=== PATIENT | male | born 1965 | race Caucasian/White ===

== ENCOUNTER 2024-01-20 09:40 | Day surgery (SDC) | payer BC, OTHER ==
[~2024-01-20] VITALS: Ht 183 cm; Wt 98.0 kg
[2024-01-20] VITALS (16 sets, daily range): BP systolic 106–139; BP diastolic 73–92
[~2024-01-20 09:40] MED LIST: ABILIFY MYCITE2 M2 PO; BUPROPION HCL200 M2 PO; ESCI20 PO; HYDROCODONE-AC1 EAC8 PO
[2024-01-20] MEDS ORDERED: OxyCODONE HCL 10 MG TABCR PO SCH (10:00)
[2024-01-20] MEDS ORDERED: Ropivacaine 0.5% HCl/Pf 123.125 MG,EPINEPHrine HCL 0.25 MG,Ketorolac Tromethamine 15 MG... INFIL SCH (10:00)
[2024-01-20] MEDS ORDERED: CeFAZolin Sodium 2,000 MG in NS 100 ML IV SCH ×2 (10:00→21:00)
[2024-01-20] MEDS ORDERED: Acetaminophen 500 MG Tab PO SCH ×2 (10:00→16:00)
[2024-01-20] MEDS ORDERED: Lactated Ringer's 1,000 ML IV SCH ×2 (10:00→10:50)
[2024-01-20] MEDS ORDERED: Chlorhexidine Mouth Care 15 ML UDC MT SCH (10:00)
[2024-01-20] MEDS ORDERED: Tranexamic Acid 100 ML IV SCH (10:00)
[2024-01-20] MEDS ORDERED: Promethazine HCl 25 MG Tab PO PRN (10:40)
[2024-01-20] MEDS ORDERED: Prochlorperazine Edisylate 10 mg Vial IV PRN (10:40)
[2024-01-20] MEDS ORDERED: Magnesium Hydroxide Conc 10 ML UDC PO PRN (10:45)
[2024-01-20] MEDS ORDERED: Bisacodyl 10 MG Supp PR PRN (10:45)
[2024-01-20] MEDS ORDERED: Metoclopramide HCl 5MG / ML 2ML Vial IV PRN (10:45)
[2024-01-20] MEDS ORDERED: OxyCODONE HCL 5 MG TAB PO PRN ×2 (10:45)
[2024-01-20] MEDS ORDERED: Ondansetron HCl 2 MG / ML 2ML Vial IV PRN (10:45)
[2024-01-20] MEDS ORDERED: DiphenhydrAMINE HCL 25 MG Cap PO PRN (10:50)
[2024-01-20] MEDS ORDERED: HYDROmorphone HCl/Pf 1MG SYR IV PRN (10:50)
[2024-01-20] MEDS ORDERED: ERGO50000 PO (11:13)
[2024-01-20] MEDS ORDERED: PREVIDENT 500051 GM DT (11:13)
[2024-01-20] MEDS ORDERED: PERIDEX15 ML UD (11:15)
[2024-01-20] MEDS ORDERED: Ketorolac Tromethamine 15mg Vial IV SCH (11:25)
[2024-01-20] MEDS ORDERED: propofoL 20 ML IV ONE ×2 (12:42→13:17)
[2024-01-20] MEDS ORDERED: ePHEDrine Sulfate 50 MG/ML 1ML Injection ONE (13:06)
[2024-01-20] MEDS ORDERED: FentaNYL Citrate 50 MCG/ML 2 ML Injection ONE (13:31)
--- NOTE | 2024-01-20 13:43 | NUR ---
01/20/24 1343 Kellee Schultz PATIENT ENTERED OR AT 1246.ANESTHESIOLOGIST PERFORMED SPINAL. ON INCISION AT 1326, PATIENT WAS STILL HAVING FEELING SENSATION. AT THIS TIME,ANESTHESIOLOGIST CONVERTED TO GENERAL.
[2024-01-20] MEDS ORDERED: Glycopyrrolate 0.2 MG/ML 5ML VIAL ONE (13:45)
[2024-01-20] MEDS ORDERED: Phenylephrine HCl 100 MCG/ML-NS 10MLSYR (1MG/10ML) ONE (14:01)
[2024-01-20] MEDS ORDERED: Dexamethasone Sod Phos 10 MG/ML 1ML VIAL ONE (14:30)
[2024-01-20] MEDS ORDERED: Ondansetron HCl 2 MG / ML 2ML Vial ONE (14:30)
--- NOTE | 2024-01-20 17:45 | NUR ---
SHIFT SUMMARY PT A&OX4, VSS/RA, CASSIE PO, VOIDING, AMB 1 PP MIN ASSIST WITH FWW/GB, PAIN MANAGED. DAV HENDRICKS BEDSIDE. PT IS INSISTING ON GOING HOME EVEN THOUGH LEFT KNEE JAGJIT OCC WITH AMB AND PT WAS UNABLE TO WORK WITH PHYSICAL THERAPY DUE TO TIME OF COMPLETION OF SURGERY AND ARRIVING TO THE FLOOR AND ANESTHESIA WEARING OFF; PT IS STAYING AN ADDITIONAL HOUR TO HAVE DINNER AND THEN WILL WALK WITH ASSISTANCE AGAIN PRIOR TO DECIDING ON DC; I AM ENCOURAGING PT TO STAY THE NIGHT BUT HE SAYS HE IS NOT GOING TO STAY.
--- NOTE | 2024-01-20 19:11 | NUR ---
SHIFT SUMMARY PT AMB HALLWAY AGAIN WITH FWW/GB, KNEE BUCKLED 5X. I TOLD PATIENT I WOULD NOT DC HIM AT THIS TIME. HE DENIES PAIN, HE AMBS WNL JUST OCC LLE SEEMS TO GIVE W/O NOTICE. HIS GF WANTS HIM TO STAY. PLAN IS TO STAY AND WAIT FOR ANES TO CONTINUE TO WEAR OFF, AND WORK WITH PHYSICAL THERAPY IN THE AM. REPORT GIVEN TO CARLTON LINDA.
[2024-01-20] MEDS ORDERED: BuPROPion HCl SR 100 MG TabCR PO SCH (21:00)
[2024-01-20] MEDS ORDERED: Docusate Sodium 100 MG Cap PO SCH (21:00)
[2024-01-21 03:03] VITALS: BP 119/79
--- NOTE | 2024-01-21 05:02 | NUR ---
SHIFT SUMMARY TORRES WAS ALERT AND FULLY ORIENTED ON ASSESSMENT. NO COMPLAINTS OF PAIN TONIGHT, PT STATES 0/10 AT MIDNIGHT. PT STATES MOBILITY/ GAIT FEELS IMPROVED FROM DAYSHIFT, PT APPEARS STABLE ON FEET W/ FWW. AQUACEL TO L HIP IS C/D/I. SENSATION TO EXTREMETIES INTACT. PT CONTINENT AND UP TO VOID TONIGHT. NO ACUTE EVENTS OR CHANGES TO CONDITION NOTED. NO PRN PAIN MEDS REQUIRED FOR PAIN MANAGEMENT. PT RESTING IN BED AT A LOW POSITION WITH CALL LIGHT IN REACH.
[2024-01-21 05:25] LABS: BASOPHILS ABSOLUTE AUTO 0.02 K/mm3 (0.00-0.23); BASOPHILS PERCENT AUTO 0 % (0-2); EOSINOPHILS PERCENT AUTO 0 % (0-6); Hematocrit 37.1 % (37.0-53.0); Hemoglobin 12.3 g/dL (13.5-17.5); IMMATURE GRAN ABSOLUTE AUTO 0.06 K/mm3 (0.00-0.10); IMMATURE GRAN PERCENT AUTO 1 % (0-1); LYMPHOCYTES ABSOLUTE AUTO 1.06 K/mm3 (0.84-5.20); LYMPHOCYTES PERCENT AUTO 9 % (21-46); MONOCYTES ABSOLUTE AUTO 0.78 K/mm3 (0.16-1.47); MONOCYTES PERCENT AUTO 7 % (4-13); Mean Corpuscular HGB 30.1 pg (26.0-34.0); Mean Corpuscular HGB Conc 33.2 g/dL (31.5-36.5); Mean Corpuscular Volume 91 fL (80-100); Mean Platelet Volume 9.5 fL (9.1-12.4); NEUTROPHILS ABSOLUTE AUTO 10.13 K/mm3 (1.96-9.15); NEUTROPHILS PERCENT AUTO 84 % (41-73); Platelet Count 210 K/mm3 (150-400); RDW Coefficient Variation 11.9 % (11.7-14.2); RDW Standard Deviation 39.5 fL (35.1-46.3); Red Blood Cell Count 4.09 M/mm3 (4.30-5.90); White Blood Cell Count 12.05 K/mm3 (4.00-11.30)
[2024-01-21 05:52] LABS: Bun/Creatinine Ratio 15.1 (12.0-20.0); Creatinine, Blood 0.86 mg/dL (0.60-1.20); Potassium, Blood 4.5 mmol/L (3.5-5.5)
[2024-01-21] MEDS ORDERED: ASPI81CH PO (07:06)
[2024-01-21 07:24] VITALS: BP 118/83
[2024-01-21] MEDS ORDERED: Aspirin 81 MG Chew PO SCH (09:00)
[2024-01-21] MEDS ORDERED: ARIPiprazole 2 MG Tablet PO SCH (09:00)
[2024-01-21] MEDS ORDERED: Citalopram Hydrobromide 20 MG Tab PO SCH (09:00)
--- NOTE | 2024-01-21 09:03 | NUR ---
DISCHARGE NOTE: PATIENT AND WERE EDUCATED ON DISCHARGE INSTRUCTIONS. BOTH VERBALIZED UNDERSTANDING OF INSTRUCTIONS AND HAD NO FURTHER QUESTIONS AT THIS TIME. IV WAS TAKEN OUT AND WNL. PAIN IS MANAGED WITH PO PAIN MEDS. HIS LEFT HIP HAS AN AQUACEL THAT IS C/D/I. DENIES NUMBNESS OR TINGLING THROUGHOUT ALL EXTREMITIES. HE IS TOLERATING PO INTAKE AND IS VOIDING. HE IS A SBA WITH FWW AND GAIT BELT. PATIENT IS DRESSED AND HAS PERSONAL ITEMS IN THE ROOM GATHERED. HE IS BEING WHEELCHAIRED DOWN TO HIS WIFES CAR TO BE TAKEN HOME.
== END 2024-01-21 09:05 | disposition home or self-care (01) ==
LOC: ORSCMMR 09:40 → ORD 11:00 → SURS 15:21 → ORSCMMR 01-21 09:05
PROVIDERS: Orthopaedic Surgery
PROC: 0SRB0JZ Replacement of Left Hip Joint with Synthetic Substitute, Open Approach (ICD-10-PCS; principal; 2024-01-20 11:00)
DX: M87.050 Idiopathic aseptic necrosis of pelvis (principal); E78.5 Hyperlipidemia, unspecified; Z87.891 Personal history of nicotine dependence; Z79.899 Other long term (current) drug therapy
CPT/HCPCS: 36415; 72170; 80048; 85025; 97110; 97161; A9270; C1776; J0171; J0690; J0735; J1100; J1885; J2371; J2405; J2704; J2795; J3010; J7120

== ENCOUNTER 2024-08-08 05:21 | Observation (INO) | payer BC, OTHER ==
[~2024-08-08] VITALS: Ht 188 cm; Wt 101.5 kg
[~2024-08-08 05:21] MED LIST changes: +ASPI81CH PO; +ERGO50000 PO; +PERIDEX15 ML UD; +PREVIDENT 500051 GM DT
[2024-08-08] MEDS ORDERED: NS 1,000 ML IV SCH (05:30)
[2024-08-08] MEDS ORDERED: Ketorolac Tromethamine 30mg Vial IV ONE (05:30)
[2024-08-08 05:49] LABS: BASOPHILS PERCENT AUTO 0 % (0-2); EOSINOPHILS PERCENT AUTO 0 % (0-6); Hematocrit 37.5 % (37.0-53.0); Hemoglobin 12.9 g/dL (13.5-17.5); IMMATURE GRAN PERCENT AUTO 0 % (0-1); LYMPHOCYTES ABSOLUTE AUTO 0.31 K/mm3 (0.84-5.20); LYMPHOCYTES PERCENT AUTO 19 % (21-46); MONOCYTES ABSOLUTE AUTO 0.02 K/mm3 (0.16-1.47); MONOCYTES PERCENT AUTO 1 % (4-13); Mean Corpuscular HGB 31.9 pg (26.0-34.0); Mean Corpuscular HGB Conc 34.4 g/dL (31.5-36.5); Mean Corpuscular Volume 93 fL (80-100); Mean Platelet Volume 9.1 fL (9.1-12.4); NEUTROPHILS ABSOLUTE AUTO 1.29 K/mm3 (1.96-9.15); NEUTROPHILS PERCENT AUTO 80 % (41-73); Platelet Count 146 K/mm3 (150-400); RDW Coefficient Variation 13.1 % (11.7-14.2); RDW Standard Deviation 44.6 fL (35.1-46.3); Red Blood Cell Count 4.05 M/mm3 (4.30-5.90); White Blood Cell Count 1.62 K/mm3 (4.00-11.30)
[2024-08-08 06:20] LABS: Albumin, Blood 3.4 g/dL (3.4-5.0); Bilirubin, Total 0.7 mg/dL (0.1-1.0); Bun/Creatinine Ratio 13.5 (12.0-20.0); Calcium, Blood 8.7 mg/dL (8.5-10.1); Creatinine, Blood 1.11 mg/dL (0.60-1.20); Globulin, Blood 3.4 g/dL (2.2-4.0); Potassium, Blood 4.1 mmol/L (3.5-5.5); Total Protein, Blood 6.8 g/dL (6.4-8.2)
[2024-08-08 06:40] LABS: CORONAVIRUS COVID-19 AG Negative (NEGATIVE); INFLUENZA A AG Negative (NEGATIVE); INFLUENZA B AG Negative (NEGATIVE)
[2024-08-08 11:14] LABS: Source, Urine Clean Catch
[2024-08-08 11:16] LABS: Appearance, Urine Clear (Clear); Bilirubin, Urine Neg (Neg); Blood, Urine Neg (Neg); Color, Urine Yellow (P-Yellow); Glucose Qualitative, Urine Neg (Neg); Ketones, Urine 1+ (Neg); Leukocyte Esterase, Urine Neg (Neg); Nitrite, Urine Neg (Neg); Protein, Urine Neg (Neg); Urobilinogen, Urine 1+ (Normal)
[2024-08-08] MEDS ORDERED: Acetaminophen 500 MG Tab PO ONE (11:35)
[2024-08-08] MEDS ORDERED: Ondansetron 4 MG TAB PO PRN (15:50)
[2024-08-08] MEDS ORDERED: FLU VACC TS2024-25(6MOS UP)/PF 45 MCG/0.5 ML SYRINGE IM ONE (15:50)
[2024-08-08] MEDS ORDERED: Thiamine HCl 100 MG in NS 50 ML IV SCH (16:00)
[2024-08-08] MEDS ORDERED: Cefepime HCl 2,000 MG in NS 100 ML IV SCH (16:00)
[2024-08-08 16:41] LABS: Adenovirus Not Detected (NOT DETECT); Bordetella pertussis Not Detected (NOT DETECT); Chlamydophila pneumoniae Not Detected (NOT DETECT); Coronavirus 229E Not Detected (NOT DETECT); Coronavirus HKU1 Not Detected (NOT DETECT); Coronavirus NL63 Not Detected (NOT DETECT); Coronavirus OC43 Not Detected (NOT DETECT); Human Metapneumovirus Not Detected (NOT DETECT); Human Rhinovirus/Enterovirus Not Detected (NOT DETECT); Influenza A/2009-H1 Not Detected (NOT DETECT); Influenza A/H1 Not Detected (NOT DETECT); Influenza A/H3 Not Detected (NOT DETECT); Influenza B Not Detected (NOT DETECT); Mycoplasma pneumoniae Not Detected (NOT DETECT); Parainfluenza Virus 1 Not Detected (NOT DETECT); Parainfluenza Virus 2 Not Detected (NOT DETECT); Parainfluenza Virus 3 Not Detected (NOT DETECT); Parainfluenza Virus 4 Not Detected (NOT DETECT); Respiratory Syncytial Virus Not Detected (NOT DETECT); SARS-Cov-2 (COVID-19), BioFire Not Detected (NOT DETECT)
[2024-08-08 18:50] VITALS: BP 104/62
[2024-08-08 20:37] VITALS: BP 116/75
[2024-08-08] MEDS ORDERED: CLIN300 PO (20:44)
[2024-08-08] MEDS ORDERED: GABA300 PO (20:46)
[2024-08-08] MEDS ORDERED: Flurbiprofen100 MG (20:49)
[2024-08-08] MEDS ORDERED: HYDROcodone 5-APAP 325 TAB PO PRN (21:30)
[2024-08-09 04:23] VITALS: BP 119/73
[2024-08-09 04:56] LABS: BASOPHILS ABSOLUTE AUTO 0.03 K/mm3 (0.00-0.23); BASOPHILS PERCENT AUTO 0 % (0-2); EOSINOPHILS ABSOLUTE AUTO 0.09 K/mm3 (0.00-0.68); EOSINOPHILS PERCENT AUTO 1 % (0-6); Hematocrit 36.2 % (37.0-53.0); Hemoglobin 12.3 g/dL (13.5-17.5); IMMATURE GRAN ABSOLUTE AUTO 0.02 K/mm3 (0.00-0.10); IMMATURE GRAN PERCENT AUTO 0 % (0-1); LYMPHOCYTES ABSOLUTE AUTO 1.07 K/mm3 (0.84-5.20); LYMPHOCYTES PERCENT AUTO 14 % (21-46); MONOCYTES ABSOLUTE AUTO 0.67 K/mm3 (0.16-1.47); MONOCYTES PERCENT AUTO 9 % (4-13); Mean Corpuscular HGB 31.7 pg (26.0-34.0); Mean Corpuscular Volume 93 fL (80-100); Mean Platelet Volume 9.5 fL (9.1-12.4); NEUTROPHILS PERCENT AUTO 75 % (41-73); Platelet Count 138 K/mm3 (150-400); RDW Coefficient Variation 13.1 % (11.7-14.2); RDW Standard Deviation 44.4 fL (35.1-46.3); Red Blood Cell Count 3.88 M/mm3 (4.30-5.90); White Blood Cell Count 7.48 K/mm3 (4.00-11.30)
[2024-08-09 05:28] LABS: Magnesium, Blood 2.6 mg/dL (1.6-2.4)
[2024-08-09 05:37] LABS: Albumin, Blood 3.1 g/dL (3.4-5.0); Albumin/Globulin Ratio 0.9 (0.8-1.8); Bilirubin, Total 0.7 mg/dL (0.1-1.0); Bun/Creatinine Ratio 13.6 (12.0-20.0); C-Reactive Protein, High Sens. 79.9 mg/dL (0.000-3.000); Calcium, Blood 9.1 mg/dL (8.5-10.1); Creatinine, Blood 0.89 mg/dL (0.60-1.20); Globulin, Blood 3.5 g/dL (2.2-4.0); Potassium, Blood 3.9 mmol/L (3.5-5.5); Total Protein, Blood 6.6 g/dL (6.4-8.2)
[2024-08-09 07:24] VITALS: BP 106/77
[2024-08-09] MEDS ORDERED: Enoxaparin 40 MG/0.4 ML SYR SC SCH (09:00)
[2024-08-09] MEDS ORDERED: Folic Acid 1 MG TAB PO SCH (09:00)
[2024-08-09] MEDS ORDERED: ESCI20 PO (09:16)
[2024-08-09 14:56] VITALS: BP 121/84
[2024-08-09] MEDS ORDERED: CefTRIAXone Sodium 1,000 MG in NS 100 ML IV SCH (17:00)
[2024-08-09] MEDS ORDERED: BuPROPion HCl SR 100 MG TabCR PO SCH (17:00)
[2024-08-09] MEDS ORDERED: NS 250 ML IV PRN (17:50)
--- NOTE | 2024-08-09 18:41 | NUR ---
SHIFT SUMMARY PT A&OX4. PT ADMITTED DUE TO NEUTROPENIC FEVER. PT REPORTS FATIGUE. VSS. NO CURRENT FEVER THROUGH SHIFT. PT REPORTS NOT EATING ADEQUATE BUT ON REG DIET. PT INDEPENDENT IN ROOM. PT REPORTS HEADACHE, DENIED NEED FOR MEDICATION, PT REPORTS INCREASE IN HIM EATING FOOD WOULD HELP HEADACHE. PT CONT. OF URINE AND BM. PT BED IN LOWEST POSITION. PT CALLS APPROPRIATE. PLAN FOR CONT. ANTIBIOTICS.
[2024-08-09 19:38] VITALS: BP 121/76
[2024-08-09] MEDS ORDERED: Gabapentin 300 MG Cap PO SCH (21:00)
[2024-08-09] MEDS ORDERED: Lactobacil 2-S.Thermo-Bifido 1 1 Cap PO SCH (21:00)
[2024-08-09] MEDS ORDERED: ARIPiprazole 2 MG Tablet PO SCH (21:00)
[2024-08-10 04:15] VITALS: BP 119/83
--- NOTE | 2024-08-10 05:43 | NUR ---
SHIFT SUMMARY PATIENT IS ALERT AND ORIENTED. PATIENT HAS HAD NO ACUTE EVENTS THIS SHIFT. VITAL SIGNS REVIEWED. PATIENT HAS BEEN ON NEUTROPENIC PRECAUTIONS ALL SHIFT. PATIENT HAS REPORTED PAIN THIS SHIFT. MEDICATED PER EMAR. PATIENT HAS REPORTED NO SOB, NAUSEA, VOMITTING THIS SHIFT. BED IN LOWEST AND LOCKED POSITION.
[2024-08-10 06:02] LABS: Hemoglobin 13.2 g/dL (13.5-17.5); Mean Corpuscular HGB 31.4 pg (26.0-34.0); Mean Corpuscular HGB Conc 33.8 g/dL (31.5-36.5); Mean Corpuscular Volume 93 fL (80-100); Mean Platelet Volume 9.8 fL (9.1-12.4); Platelet Count 146 K/mm3 (150-400); RDW Coefficient Variation 12.8 % (11.7-14.2); RDW Standard Deviation 43.5 fL (35.1-46.3); Red Blood Cell Count 4.21 M/mm3 (4.30-5.90); White Blood Cell Count 6.13 K/mm3 (4.00-11.30)
[2024-08-10 06:27] LABS: BASOPHILS ABSOLUTE MAN 0.06 K/mm3 (0.00-0.23); BASOPHILS PERCENT MAN 1 % (0-2); EOSINOPHILS ABSOLUTE MAN 0.18 K/mm3 (0.00-0.68); EOSINOPHILS PERCENT MAN 3 % (0-6); LYMPHOCYTES ABSOLUTE MAN 2.14 K/mm3 (0.84-5.20); LYMPHOCYTES PERCENT MAN 35 % (21-46); MONOCYTES ABSOLUTE MAN 0.61 K/mm3 (0.16-1.47); MONOCYTES PERCENT MAN 10 % (4-13); NEUTROPHILS ABSOLUTE MAN 3.12 K/mm3 (1.96-9.15); SEG NEUTROPHILS PERCENT MAN 51 % (41-73); TOTAL CELLS COUNTED 100
[2024-08-10 06:28] LABS: Alanine Aminotransfer (ALT/SGP 115 U/L (12-78); Albumin, Blood 3.2 g/dL (3.4-5.0); Albumin/Globulin Ratio 0.9 (0.8-1.8); Alk Phos 95 U/L (50-136); Anion Gap 9 mmol/L (3-11); Aspartate Aminotrans (AST/SGOT 47 U/L (12-37); Bilirubin, Total 0.6 mg/dL (0.1-1.0); Blood Urea Nitrogen 11 mg/dL (8-24); Bun/Creatinine Ratio 11.6 (12.0-20.0); CHOL/HDL RATIO 3.1; CO2, Blood 26 mmol/L (21-32); Calcium, Blood 9.2 mg/dL (8.5-10.1); Chloride, Blood 110 mmol/L (98-108); Cholesterol 201 mg/dL (50-200); Creatinine, Blood 0.95 mg/dL (0.60-1.20); Globulin, Blood 3.6 g/dL (2.2-4.0); Glomerular Filtration Rate 93 (60-); Glucose, Blood 101 mg/dL (70-99); HDL Cholesterol 65 mg/dL (>39); LDL/HDL RATIO 1.8; Lactate Dehydrogenase (Ld),Bld 171 U/L (100-240); Low Density Lipoprotein Chol 117 mg/dL (0-110); Magnesium, Blood 2.2 mg/dL (1.6-2.4); Phosphorus, Blood 3.1 mg/dL (2.5-4.9); Potassium, Blood 4.1 mmol/L (3.5-5.5); Sodium, Blood 141 mmol/L (136-145); Total Protein, Blood 6.8 g/dL (6.4-8.2); Triglycerides 96 mg/dL (30-160); Very Low Density Lipoprot Chol 19 mg/dL (6-32)
[2024-08-10 07:42] VITALS: BP 141/82
[2024-08-10] MEDS ORDERED: Citalopram Hydrobromide 20 MG Tab PO SCH (09:00)
[2024-08-10] MEDS ORDERED: CEFD300 PO (12:23)
[2024-08-10] MEDS ORDERED: VISBIOME 112.51 EACH PO (12:24)
[2024-08-10] MEDS ORDERED: Thiamine HCl 100 MG Tab PO SCH (14:00)
--- NOTE | 2024-08-10 14:12 | NUR ---
DISCHARGE NOTE PT A&OX4. PT ADMITTED DUE TO NEUTROPENIC FEVER. VSS. PT HAD NO FEVER. PT REPORTED NO PAIN. IV D/C'D. PT REPORTS IMPROVEMENT IN FATIGUE. PT INDEPENDENT IN ROOM. COLLECTED A FECAL OCCULT STOOL SCREENING TEST TODAY. WENT OVER DISCHARGE INSTRUCTIONS AND MEDS. AT BEDSIDE THROUGH DAY. PT REPORTS WILL FOLLOW UP WITH PCP. MEDS FAXED TO PHARMACY. PT WENT WITH PERSONAL BELONGINGS AND WALKED OUT WITH TO PERSONAL VEHICLE.
[2024-08-10 14:35] LABS: Stool Occult Blood Guaiac 1 Pos (Neg)
[2024-08-10 15:59] LABS: HEPATITIS A ANTIBODY, IGM Negative (Negative); HEPATITIS B CORE ANTIBODY, IGM Negative (Negative); HEPATITIS B SURFACE ANTIGEN Negative (Negative); HEPATITIS C AB CIA INTERP Negative (Negative); HEPATITIS C ANTIBODY CIA INDEX <0.02 IV
[2024-08-11 01:53] LABS: HAPTOGLOBIN 144 mg/dL (30-200)
== END 2024-08-10 14:13 | disposition home or self-care (01) ==
LOC: ER 05:21 → MEDS 05:23 → ER 15:46 → MEDS 19:16
PROVIDERS: Family Medicine; Student in an Organized Health Care Education/Training Program; ADMIT Internal Medicine
DX: D70.9 Neutropenia, unspecified (principal); R50.81 Fever presenting with conditions classified elsewhere; N30.90 Cystitis, unspecified without hematuria; R79.89 Other specified abnormal findings of blood chemistry; L40.9 Psoriasis, unspecified; N52.9 Male erectile dysfunction, unspecified; F10.11 Alcohol abuse, in remission; F41.8 Other specified anxiety disorders; H91.90 Unspecified hearing loss, unspecified ear; Z96.642 Presence of left artificial hip joint; Z88.8 Allergy status to other drugs, medicaments and biological substances
CPT/HCPCS: 0202U; 36415; 71046; 73502; 74177; 80053; 80061; 80074; 81003; 82140; 82270; 82306; 83010; 83615; 83690; 83735; 84100; 84443; 85007; 85025; 85027; 85651; 86140; 86141; 87040; 87428-QW; 93005; 93010; 96365; 96366; 96367; 96372; 96376; 99285-25; A9270; G0378; J0696; J1650; J3411; J7030; J7050; Q9967

== ENCOUNTER → 2024-10-07 | Outpatient (CLI) | payer BC, OTHER ==
[~2024-10-07] MED LIST changes: +CEFD300 PO; +CLIN300 PO; +Flurbiprofen100 MG; +GABA300 PO; +VISBIOME 112.51 EACH PO
[2024-10-07 17:13] LABS: BASOPHILS ABSOLUTE AUTO 0.11 K/mm3 (0.00-0.23); BASOPHILS PERCENT AUTO 1 % (0-2); EOSINOPHILS ABSOLUTE AUTO 0.24 K/mm3 (0.00-0.68); EOSINOPHILS PERCENT AUTO 3 % (0-6); Hematocrit 42.7 % (37.0-53.0); Hemoglobin 14.4 g/dL (13.5-17.5); IMMATURE GRAN ABSOLUTE AUTO 0.05 K/mm3 (0.00-0.10); IMMATURE GRAN PERCENT AUTO 1 % (0-1); LYMPHOCYTES ABSOLUTE AUTO 2.26 K/mm3 (0.84-5.20); LYMPHOCYTES PERCENT AUTO 29 % (21-46); MONOCYTES ABSOLUTE AUTO 0.58 K/mm3 (0.16-1.47); MONOCYTES PERCENT AUTO 7 % (4-13); Mean Corpuscular HGB 31.2 pg (26.0-34.0); Mean Corpuscular HGB Conc 33.7 g/dL (31.5-36.5); Mean Corpuscular Volume 92 fL (80-100); Mean Platelet Volume 9.4 fL (9.1-12.4); NEUTROPHILS PERCENT AUTO 59 % (41-73); Platelet Count 226 K/mm3 (150-400); RDW Coefficient Variation 12.5 % (11.7-14.2); RDW Standard Deviation 42.4 fL (35.1-46.3); Red Blood Cell Count 4.62 M/mm3 (4.30-5.90); White Blood Cell Count 7.84 K/mm3 (4.00-11.30)
[2024-10-07 17:27] LABS: Albumin, Blood 4.1 g/dL (3.4-5.0); Albumin/Globulin Ratio 1.1 (0.8-1.8); Bilirubin, Total 0.7 mg/dL (0.1-1.0); Calcium, Blood 9.4 mg/dL (8.5-10.1); Globulin, Blood 3.8 g/dL (2.2-4.0); Potassium, Blood 4.5 mmol/L (3.5-5.5); Total Protein, Blood 7.9 g/dL (6.4-8.2)
== END ==
LOC: LAB 17:08 → LAB SHORT 17:08
PROVIDERS: Emergency Medicine
DX: R11.2 Nausea with vomiting, unspecified (principal)
CPT/HCPCS: 80053; 83690; 85025

== ENCOUNTER 2025-04-19 12:55 | Emergency (ER) | payer BC, OTHER ==
[~2025-04-19] VITALS: Ht 185.4 cm; Wt 104.3 kg
[~2025-04-19 12:55] MED LIST changes: +MELO7.5
[2025-04-19 13:22] VITALS: BP 136/101
== END 2025-04-19 14:47 | disposition home or self-care (01) ==
LOC: ER 12:55
DX: R45.851 Suicidal ideations (principal); F41.8 Other specified anxiety disorders; Z88.8 Allergy status to other drugs, medicaments and biological substances; Z88.1 Allergy status to other antibiotic agents; Z79.899 Other long term (current) drug therapy
CPT/HCPCS: 99283